=== PATIENT | male | born 1955 | race Caucasian/White ===

== ENCOUNTER 2017-09-03 20:17 | Inpatient (IN) | payer BC, OTHER ==
[~2017-09-03] VITALS: Ht 188 cm; Wt 112.0 kg
--- NOTE | 2017-09-03 20:32 | NUR ---
ATTEMPTED TO PLACE HL ON BEHALF OF PRIMARY NURSE MOHINI; PT REFUSED AND STATED "I JUST WANT REGULAR BLOOD DRAW; DONT WANT NO IV". INFORMED IF HE'S TO BE ADMITTED HE WILL HAVE TO BE STUCK TWICE. PT STATES "I AM NOT SURE I WANNA BE ADMITTED; JUST CHECK ME OUT".
[2017-09-03 20:43] LABS: BASOPHILS % (AUTO) 1.1 % (0.0-2.0); EOSINOPHILS % (AUTO) 0.5 % (0.0-6.0); HEMATOCRIT 35 % (39-51); HEMOGLOBIN 12.4 g/dL (13.5-17.5); LYMPHOCYTES # (AUTO) 0.8 /CMM (0.8-4.8); LYMPHOCYTES % (AUTO) 42.2 % (20.0-44.0); MEAN CORPUSCULAR HEMOGLOBIN 31 PG (26.0-33.0); MEAN CORPUSCULAR HGB CONC 36 g/dl (31.0-36.0); MEAN CORPUSCULAR VOLUME 86 fL (80-96); MONOCYTES # (AUTO) 0.1 /CMM (0.1-1.30); MONOCYTES % (AUTO) 6.5 % (2.0-12.0); NEUTROPHILS % (AUTO) 49.7 % (43.0-81.0); PLATELET COUNT (AUTO) 68 /CMM (150-450); RDW COEFFICIENT OF VARIATION 16.1 (11.5-15.0); RED BLOOD CELL COUNT(AUTO) 4.01 MIL/uL (4.5-6.0)
[2017-09-03 20:56] LABS: INR 0.95 (0.85-1.15)
[2017-09-03 21:02] LABS: TROPONIN I < 0.017 ng/mL (0.00-0.056)
[2017-09-03 21:29] LABS: CALCIUM, SERUM 8.8 mg/dL (8.5-10.1); CARBON DIOXIDE 20 mmol/L (21-32); CHLORIDE 106 mmol/L (98-107); CREATININE 1.5 mg/dL (0.6-1.3); GLUCOSE 295 mg/dL (74-106); POTASSIUM 3.4 mmol/L (3.5-5.1); SODIUM SERUM 139 mmol/L (136-145); UREA NITROGEN, BLOOD 20 mg/dL (7-18)
[2017-09-03 21:42] LABS: BAND % (MANUAL) 4 % (0.0-5.0); LYMPHOCYTES % (MANUAL) 36 % (16-48); MONOCYTES % (MANUAL) 8 % (0-11.0); NEUTROPHILS % (MANUAL) 52 (42-76)
--- NOTE | 2017-09-03 21:48 | NUR ---
PATIENT ASSIGNED TO TELE 322-2, ADMITTED BY DR BO DX CHEST PAIN
--- NOTE | 2017-09-03 21:52 | NUR ---
PT STATES THAT HE IWS FEELING BETTER.
--- NOTE | 2017-09-03 22:24 | NUR ---
DR. BO AT BEDSIDE TO [place] PT.
--- NOTE | 2017-09-03 22:37 | NUR ---
PT HAS DECIDED TO STAY. ROOM OBTAINED. PREPARING PT FOR TRANSFER TO FLOOR.
--- NOTE | 2017-09-03 22:48 | NUR ---
REPORT GIVEN TO SERENITY. ROOM NOT READY. WAITING TO TRANSFER PT.
[2017-09-03] MEDS ORDERED: MORPHINE SULFATE INJ 2 MG/ML DISP.SYRIN IV PRN (23:00)
[2017-09-03] MEDS ORDERED: ASPIRIN 81 MG TAB.CHEW PO ONE (23:00)
[2017-09-03] MEDS ORDERED: NITROGLYCERIN 0.4 MG/TAB BOTTLE SL PRN (23:00)
[2017-09-03] MEDS ORDERED: METOPROLOL TARTRATE 25 MG TABLET PO ONE (23:00)
[2017-09-03] MEDS ORDERED: IV 1/2NS 1000 ML 1,000 ML IV PRN (23:00)
[2017-09-03 23:15] VITALS: BP 153/91
--- NOTE | 2017-09-03 23:15 | NUR ---
CAN DRYERSCRAP BALLER NOTES RECEIVED PT FROM ER VIA [place] ACCOMPANIED BY STAFF, A & O X 4, NO C/O CHEST PAIN, NO SOB, NO ACUTE DISTRESS NOTED 2 THIS TIME. VERBALIZES NO NEED FOR O2. RESP EVEN & NON LABORED. MILD WEAKNESS NOTED WHILE TRIED TO AMBULATE. EDUCATED TO REST & USE THE URINAL WHEN NEEDED & UNDERSTOOD. IV ACCESS TO RFA, INTACT PATENT. WILL CONTINUE WITH IVF ORDERED BY MD. BODY CHECK DONE, NOTED WITH DRESSING ON LOWER BACK, PT REFUSED TO OPEN THE DRESSING & STATED DRESSING WILL ONLY BE CHANGED BY HIS OTHER DOCTOR OUTSIDE [facility]. HAS ACUTE LYMPHOBLASTIC LEUKEMIA & HAD BIOPSY DONE 2 COUNTS INCLUDE 234 BEDS AT THE [facility] & SITE GOT INFECTED CAUSING A WOUND TO THE LOWER BACK. NO OTHER SKIN CONCERNS VERBALIZED BY PT SINCE HE REFUSED TO DO BODY CHECK DONE & STATED,' I HAVE ONLY 1 WOUND ON MY LOWER BACK & THAT'S IT". FRIEND @ BED SIDE. IN STABLE CONDITION & SAID THAT HE IS FEELING BETTER. ALL BELONGING ACCOUNTED FOR & DOCUMENTED BY SOURCING ANALYST. ALL NEEDS ATTENDED TO & MET. BED IN LOW LOCKED POSITION. CALL LIGHT WITHIN REACH. WILL CONTINUE TO MONITOR CLOSELY.
--- NOTE | 2017-09-03 23:16 | NUR ---
BRICKMASON HELPER NOTES PATIENT IS ON TELE MONITORING WITH SR 73. NO ACUTE CHANGES NOTES.
[2017-09-03 23:30] VITALS: BP 153/91
--- NOTE | 2017-09-04 00:18 | NUR ---
NEW ORDER OF AMBIEN PATIENT WANTED TO TAKE AMBIEN SINCE HE TAKES IT @ HOME, MD MADE AWARE WITH NEW ORDER TO GIVE IT ONCE ONLY. NOTED & CARRIED OUT. WILL FOLLOW THE ORDER.
[2017-09-04] MEDS ORDERED: ZOLPIDEM TARTRATE 5 MG TABLET PO ONE (00:30)
[2017-09-04 04:00] VITALS: BP 127/81
--- NOTE | 2017-09-04 06:40 | NUR ---
DIETARY SERVICES MANAGER CLOSING NOTES PATIENT SLEPT INTERMITTENTLY @ NIGHT, A & O X 4, NO SOB, DENIED CHEST PAIN, NO ACUTE DISTRESS/DISCOMFORT NOTED. ON TELE MONITORING WITH SR 78. IV ACCESS TO RFA, RUNNING WITH 1/2 NS @ 80ML/HR, INTACT PATENT. AMBULATORY WITH STANDBY ASSIST. ON REGULAR DIET. SAFETY MEASURES IN PLACE. BED IN LOW LOCKED POSITION. CALL LIGHT WITHIN REACH. WILL ENDORSE TO AM RN FOR CONTINUITY OF CARE.
[2017-09-04 06:55] LABS: BASOPHILS % (AUTO) 0.3 % (0.0-2.0); EOSINOPHILS % (AUTO) 0.8 % (0.0-6.0); HEMATOCRIT 31 % (39-51); HEMOGLOBIN 10.9 g/dL (13.5-17.5); LYMPHOCYTES # (AUTO) 1.1 /CMM (0.8-4.8); LYMPHOCYTES % (AUTO) 46.6 % (20.0-44.0); MEAN CORPUSCULAR HEMOGLOBIN 31 PG (26.0-33.0); MEAN CORPUSCULAR HGB CONC 36 g/dl (31.0-36.0); MEAN CORPUSCULAR VOLUME 87 fL (80-96); MONOCYTES # (AUTO) 0.2 /CMM (0.1-1.30); MONOCYTES % (AUTO) 7.7 % (2.0-12.0); NEUTROPHILS # (AUTO) 1.1 /CMM (1.8-8.9); NEUTROPHILS % (AUTO) 44.6 % (43.0-81.0); PLATELET COUNT (AUTO) 51 /CMM (150-450); RDW COEFFICIENT OF VARIATION 16.5 (11.5-15.0); WHITE BLOOD COUNT (AUTO) 2.4 K/uL (4.3-11.0)
[2017-09-04 06:59] VITALS: BP 131/77
[2017-09-04] MEDS ORDERED: IV NS 0.9% 1,000 ML IV PRN (07:27)
[2017-09-04] MEDS ORDERED: REGADENOSON 0.4 MG/5 ML DISP.SYRIN IVP ONE (07:30)
--- NOTE | 2017-09-04 07:30 | NUR ---
LAUNDRY WORKER NOTES PATIENT RECEIVED AWAKE, ALERT AND ORIENTED. ABLE TO MAKE NEEDS KNOWN AND FOLLOW SIMPLE INSTRUCTIONS. PATIENT BREATHING EVEN AND UNLABORED. NO SOB OR DISTRESS NOTED AT THIS TIME. PATIENT AFEBRILE, SKIN DRY AND WARM TO TOUCH. DR. MELCHOR AT BEDSIDE. WILL CONTINUE TO MONITOR. BILATERAL UPPER SIDE RAILS UP AND LOCKED. BED LOCKED AND IN LOW POSITION, CALL LIGHT WITHIN EASY REACH
[2017-09-04] MEDS: Magnesium 1GM/D5W 100ML PREMIX 100 ML IV SCH ×2 (08:27→08:32)
[2017-09-04] MEDS ORDERED: METF10002 PO (08:28)
[2017-09-04] MEDS ORDERED: MIRT15TA7 PO (08:28)
[2017-09-04] MEDS ORDERED: ISAV186C PO (08:28)
[2017-09-04] MEDS ORDERED: FAMO20TA8 PO (08:28)
[2017-09-04] MEDS ORDERED: PROC-11 PO (08:28)
[2017-09-04] MEDS ORDERED: HYDR10TA PO (08:28)
[2017-09-04] MEDS ORDERED: POTA10TA15 PO (08:28)
[2017-09-04] MEDS ORDERED: GABA-534 PO (08:28)
[2017-09-04] MEDS ORDERED: ACYC400T PO (08:28)
[2017-09-04] MEDS ORDERED: ZOLP10TA6 PO (08:28)
[2017-09-04] MEDS ORDERED: ATEN50TA PO (08:28)
[2017-09-04] MEDS ORDERED: ATOV750O4 PO (08:28)
[2017-09-04] MEDS ORDERED: CHOL50004 PO (08:28)
[2017-09-04 08:32] VITALS: BP 131/77
[2017-09-04] MEDS: POTASSIUM CHLORIDE 20 MEQ TAB.PRT.SR PO SCH ×3 (08:32→09:51)
[2017-09-04] MEDS ORDERED: ASPIRIN 81 MG TAB.CHEW PO SCH (09:00)
[2017-09-04] MEDS ORDERED: METOPROLOL TARTRATE 25 MG TABLET PO SCH (09:00)
--- NOTE | 2017-09-04 09:00 | NUR ---
ISOTOPE HYDROLOGIST NOTES PATIENT SEEN AND EXAMINED BY DR. MELCHOR, NEW ORDERS CARRIED OUT. PATIENT WITH ORDER FOR STRESS TEST, VERIFIED INFORMED CONSENT OBTAINED BY MD FROM PATIENT, WITNESSED. WILL CONTINUE TO MONITOR
[2017-09-04 10:00] LABS: EOSINOPHILS % (MANUAL) 2 % (0-4); LYMPHOCYTES % (MANUAL) 48 % (16-48); MONOCYTES % (MANUAL) 8 % (0-11.0); NEUTROPHILS % (MANUAL) 42 (42-76)
--- NOTE | 2017-09-04 10:00 | NUR ---
MS RN NOTES PATIENT WITH MAGNESIUM 1GM IV, 2ND BAG TO HANG AFTER 1ST BAG. PATIENT VERBALIZED THAT HE IS PLANNING TO GO HOME AT 1100 NO MATTER WHAT AND DOES NOT WANT TO HAVE THE 2ND BAG ADMINISTERED. RISKS AND BENEFITS EXPLAINED BUT TO NO AVAIL, PATIENT STRONGLY REFUSED. OFFERED X 3, STRONGLY REFUSED.
--- NOTE | 2017-09-04 10:30 | NUR ---
MS RN NOTES PATIENT WITH DC ORDER FROM MD. DISCHARGE INSTRUCTIONS AND TEACHING PROVIDED. PATIENT AWARE THAT HE NEEDS TO FOLLOW-UP WITH MD IN 1-2 WEEKS AND SAID THAT HE ALREADY HAS A SCHEDULE FOR FOLLOW-UP APPOINTMENT WITH DR. CONTI (PCP).
--- NOTE | 2017-09-04 11:20 | NUR ---
MS RN NOTES PATIENT LEFT AT 1110 IN STABLE CONDITION, AMBULATORY, STABLE GAIT. PATIENT AFEBRILE, SKIN DRY AND WARM TO TOUCH. NO SOB OR DISTRESS NOTED. PATIENT BREATHING EVEN AND UNLABORED. DENIES ANY PAIN OR DISCOMFORT. IV REMOVED, NO BLEEDING NOTED. ALL BELONGINGS COMPLETE UPON DISCHARGE. PATIENT PICKED UP BY FRIEND (MS. DE JESUS). ESCORTED OUTSIDE OF UNIT TO CAR.
== END 2017-09-04 12:10 | disposition home or self-care (01) | DRG 311 ==
LOC: ER 20:18 → TELE 22:03 → MED 09-04 09:36
PROVIDERS: ADMIT Internal Medicine; ATTEND Internal Medicine
DX: I20.0 Unstable angina (principal); N17.0 Acute kidney failure with tubular necrosis; C91.01 Acute lymphoblastic leukemia, in remission; E83.42 Hypomagnesemia; Z98.890 Other specified postprocedural states; R73.9 Hyperglycemia, unspecified; E87.6 Hypokalemia; Z79.899 Other long term (current) drug therapy
CPT/HCPCS: 36415; 71045-TC; 80048-TC; 83735-TC; 84484-TC; 85025-TC; 85730-TC; 87081-TC; A4606; A9502; J2785; J3475; J3490; J7030; Z7610